=== PATIENT | male | born 1960 | race Caucasian/White ===

== ENCOUNTER 2016-05-22 10:58 | Emergency (ER) | payer SELFPAY ==
[2016-05-22] MEDS ORDERED: IV NORMAL SALINE 1000ML BAG 1,000 ML IV SCH (11:57)
[2016-05-22] MEDS ORDERED: FENTANYL PF 100 MCG/2 ML VIAL. IV PRN (12:00)
[2016-05-22] MEDS ORDERED: ONDANSETRON PF 4 MG/2 ML VIAL. IV ONE (12:00)
[2016-05-22] MEDS ORDERED: ASPIRIN 81 MG TAB.CHEW PO ONE (12:00)
[2016-05-22 12:08] LABS: BASO # 0.1 x10^3/uL (0.0-0.2); BASO % 1 % (0-3); EOS % 1 % (0-3); HEMATOCRIT 41.5 % (39.0-53.0); HEMOGLOBIN 13.7 g/dL (13.0-17.5); LYMPH # 1.1 x10^3/uL (1.0-4.8); LYMPH % 9 % (24-48); MEAN CORPUSCULAR HEMOGLOBIN 31 pg (25-35); MEAN CORPUSCULAR HGB CONC 33 g/dL (31-37); MEAN CORPUSCULAR VOLUME 94 fL (79-100); MONO % 6 % (0-9); NEUT % 84 % (31-73); PLATELET COUNT 200 x10^3/uL (140-400); RED BLOOD COUNT 4.42 x10^6/uL (4.30-5.70); RED CELL DISTRIBUTION WIDTH 13.2 % (11.5-14.5); WHITE BLOOD COUNT 12.4 x10^3/uL (4.0-11.0)
--- NOTE | 2016-05-22 12:10 | PHYS DOC ---
Past Medical History Past Medical History: No Pertinent History Past Surgical History: Other Additional Past Surgical Histo: RIGHT ARM SURGERY Alcohol Use: None Drug Use: Marijuana Adult General Chief Complaint Chief Complaint: CHEST PAIN HPI HPI Patient is a 55 year old male who presents with complaint of left-sided chest pain. Patient states his symptoms started yesterday. The patient states that the power steering in his vehicle when out and he was having to strain to operate his vehicle. Patient states that afterward he started developing pain along the left side of his chest as well as cramping in his left upper and lower extremity. Patient denies any known history of cardiac problems. Patient does not take medications on a regular basis. The patient states that the pain in his chest worsens with inspiration and with movement. The patient took ibuprofen at home with no relief in symptoms. Patient denies any associated diaphoresis, nausea, vomiting, or shortness of breath. The patient states that he is an occasional smoker of tobacco on a daily smoker of marijuana. Review of Systems Review of Systems Constitutional: Denies fever or chills [] Eyes: Denies change in visual acuity, redness, or eye pain [] HENT: Denies nasal congestion or sore throat [] Respiratory: Denies cough or shortness of breath [] Cardiovascular: Chest pain [] GI: Denies abdominal pain, nausea, vomiting, bloody stools or diarrhea [] : Denies dysuria or hematuria [] Musculoskeletal: Muscle cramping in left upper and lower extremity [] Integument: Denies rash or skin lesions [] Neurologic: Denies headache, focal weakness or sensory changes [] Endocrine: Denies polyuria or polydipsia [] Current Medications Current Medications Current Medications Medications (Trade) Dose Ordered Sig/Reema Start Time Stop Time Status Last Admin Dose Admin Aspirin (Children'S Aspirin) 324 mg 1X ONCE 05/22/16 12:00 05/22/16 12:02 DC 05/22/16 12:23 324 MG Fentanyl Citrate 50 mcg 50 mcg PRN Q15MIN PRN 05/22/16 12:00 05/22/16 13:32 DC 05/22/16 12:23 50 MCG Ondansetron HCl (Zofran) 4 mg 1X ONCE 05/22/16 12:00 05/22/16 12:02 DC 05/22/16 12:22 4 MG Sodium Chloride (Iv Sodium Chloride 0.9% 1000ml Bag) 1,000 ml @ 1,000 mls/hr Q1H 05/22/16 11:57 05/22/16 12:56 DC 05/22/16 12:22 1,000 MLS/HR Allergies Allergies Allergies Coded Allergies Type Severity Reaction Last Updated Verified No Known Drug Allergies 04/24/15 No Physical Exam Physical Exam Constitutional: Alert, afebrile, no acute distress. [] HENT: Normocephalic, atraumatic, bilateral external ears normal, oropharynx moist, no oral exudates, nose normal. [] Eyes: PERRLA, EOMI, conjunctiva normal, no discharge. [] Neck: Normal range of motion, no tenderness, supple, no stridor. [] Cardiovascular:Heart rate regular rhythm, no murmur [] Lungs & Thorax: Bilateral breath sounds clear to auscultation [] Abdomen: Bowel sounds normal, soft, no tenderness, no masses, no pulsatile masses. [] Skin: Warm, dry, no erythema, no rash. [] Back: No tenderness, no CVA tenderness. [] Extremities: No tenderness, no cyanosis, no clubbing, ROM intact, no edema. [] Neurologic: Alert and oriented X 3, normal motor function, normal sensory function, no focal deficits noted. [] Current Patient Data Vital Signs Vital Signs Date Time Temp Pulse Resp B/P Pulse Ox O2 Delivery O2 Flow Rate FiO2 05/22/16 13:25 67 20 134/74 96 Room Air 05/22/16 11:16 98.0 98.0 Lab Values Laboratory Tests Test 05/22/16 11:10 White Blood Count 12.4x10^3/uL (4.0-11.0) H Red Blood Count 4.42x10^6/uL (4.30-5.70) Hemoglobin 13.7g/dL (13.0-17.5) Hematocrit 41.5% (39.0-53.0) Mean Corpuscular Volume 94fL (79-100) Mean Corpuscular Hemoglobin 31pg (25-35) Mean Corpuscular Hemoglobin Concent 33g/dL (31-37) Red Cell Distribution Width 13.2% (11.5-14.5) Platelet Count 200x10^3/uL (140-400) Neutrophils (%) (Auto) 84% (31-73) H Lymphocytes (%) (Auto) 9% (24-48) L Monocytes (%) (Auto) 6% (0-9) Eosinophils (%) (Auto) 1% (0-3) Basophils (%) (Auto) 1% (0-3) Neutrophils # (Auto) 10.4x10^3uL (1.8-7.7) H Lymphocytes # (Auto) 1.1x10^3/uL (1.0-4.8) Monocytes # (Auto) 0.7x10^3/uL (0.0-1.1) Eosinophils # (Auto) 0.2x10^3/uL (0.0-0.7) Basophils # (Auto) 0.1x10^3/uL (0.0-0.2) Sodium Level 139mmol/L (136-145) Potassium Level 4.2mmol/L (3.5-5.1) Chloride Level 103mmol/L (98-107) Carbon Dioxide Level 25mmol/L (21-32) Anion Gap 11 (6-14) Blood Urea Nitrogen 18mg/dL (8-26) Creatinine 1.2mg/dL (0.7-1.3) Estimated GFR (Cockcroft-Gault) 62.9 Glucose Level 107mg/dL (70-99) H Calcium Level 9.1mg/dL (8.5-10.1) Magnesium Level 2.0mg/dL (1.8-2.4) Total Bilirubin 0.2mg/dL (0.2-1.0) Direct Bilirubin < 0.1mg/dL (0.0-0.2) Aspartate Amino Transferase (AST) 27U/L (15-37) Alanine Aminotransferase (ALT) 25U/L (16-63) Alkaline Phosphatase 58U/L (46-116) Creatine Kinase 293U/L (39-308) Creatine Kinase MB (Mass) 2.4ng/mL (0.0-3.6) Creatine Kinase MB Relative Index 0.8% (0-4) Troponin I Quantitative < 0.017ng/mL (0.000-0.055) KQ-Egw-K-Type Natriuretic Peptide 40pg/mL (0-124) Total Protein 7.1g/dL (6.4-8.2) Albumin 3.8g/dL (3.4-5.0) Laboratory Tests 05/22/16 11:10 Laboratory Tests 05/22/16 11:10 EKG EKG Interpreted by me: Heart rate 70, sinus rhythm, normal intervals, normal axis, no acute ST/T-wave abnormalities present [] Radiology/Procedures Radiology/Procedures [facility] [address] [place] [address] IMAGING REPORT Signed PATIENT: CARLTON ABREU ACCOUNT: [id number] : 1960 LOCATION: ER AGE: 55 SEX: M EXAM STATUS: PRE ER ORD. PHYSICIAN: LIZABETH THOMPSON MD REASON: left-sided chest pain today PROCEDURE: CHEST PA & LATERAL Two view chest History:left-sided chest pain today . PA and lateral views of the chest are submitted. Comparison: None Findings: There is no significant infiltrate, pleural effusion, or pneumothorax. The pericardial cardiac silhouette is within normal limits in size. The trachea is in the midline. No acute osseous abnormality is identified. There may be emphysema. There could be a tiny nodule on the left at the level of the left posterior eighth rib. Impression: 1. There is no evidence of acute cardiopulmonary disease. 2. There may be a tiny left lung nodule. Findings would be better characterized with nonemergent CT versus three-month radiographic follow-up to assess stability. DICTATED and SIGNED BY: MEL CHAPMAN MD DATE: 05/22/161226 CC: LIZABETH THOMPSON MD; NO PCP ~ [] Course & Med Decision Making Course & Med Decision Making Pertinent Labs and Imaging studies reviewed. (See chart for details) The patient was given aspirin, fentanyl, and Zofran in the emergency department. On reevaluation, patient's symptoms have improved. The patient does not show any evidence of acute cardiac ischemia. The patient's symptoms appear consistent with muscle strain likely from increased straining while operating his vehicle without power steering. I have referred the patient to Dr. Diaz for follow-up this week for routine outpatient stress testing. Advised return to the emergency department for any worsening symptoms. Patient voiced understanding and in agreement with treatment plan. Dragon Disclaimer Dragon Disclaimer This electronic medical record was generated, in whole or in part, using a voice recognition dictation system. Departure Departure Impression: Primary Impression: Chest wall pain Disposition: 01 HOME, SELF-CARE Condition: IMPROVED Referrals: NO PCP (PCP) ANNABELLA DIAZ MD Patient Instructions: Chest Pain (Nonspecific) Additional Instructions: Your emergency department evaluation today did not show any evidence of an active heart attack. Your symptoms appear to be the result of acute muscle strain. It is however recommended that she follow-up with Dr. Diaz in the next 2-3 days for evaluation and routine cardiac stress testing. Continue on a daily baby aspirin until you have made your appointment with Dr. Diaz. Return to the emergency department for any worsening symptoms. Scripts Ibuprofen 600 Mg [id number] Mg PO Q6HRS PRN INFLAMMATION #30 TAB Prov:LIZABETH THOMPSON MD 05/22/16 Cyclobenzaprine Hcl 10 Mg [id number] Mg PO TID PRN MUSCLE PAIN #30 TAB Prov:LIZABETH THOMPSON MD 05/22/16 LIZABETH THOMPSON MD May 22, 2016 12:10
[2016-05-22 12:29] LABS: ANION GAP 11 (6-14); BLOOD UREA NITROGEN 18 mg/dL (8-26); CALCIUM 9.1 mg/dL (8.5-10.1); CARBON DIOXIDE 25 mmol/L (21-32); CHLORIDE 103 mmol/L (98-107); CREATININE 1.2 mg/dL (0.7-1.3); GFR 62.9; GLUCOSE 107 mg/dL (70-99); POTASSIUM 4.2 mmol/L (3.5-5.1); SODIUM 139 mmol/L (136-145)
[2016-05-22 12:31] LABS: ALBUMIN 3.8 g/dL (3.4-5.0); ALK PHOS 58 U/L (46-116); ALT (SGPT) 25 U/L (16-63); AST (SGOT) 27 U/L (15-37); CKMB INDEX 0.8 % (0-4); CKMB MASS 2.4 ng/mL (0.0-3.6); DIRECT BILIRUBIN < 0.1 mg/dL (0.0-0.2); TOTAL BILIRUBIN 0.2 mg/dL (0.2-1.0); TOTAL PROTEIN 7.1 g/dL (6.4-8.2)
--- NOTE | 2016-05-22 12:31 | RAD ---
Two view chest History:left-sided chest pain today . PA and lateral views of the chest are submitted. Comparison: None Findings: There is no significant infiltrate, pleural effusion, or pneumothorax. The pericardial cardiac silhouette is within normal limits in size. The trachea is in the midline. No acute osseous abnormality is identified. There may be emphysema. There could be a tiny nodule on the left at the level of the left posterior eighth rib. Impression: 1. There is no evidence of acute cardiopulmonary disease. 2. There may be a tiny left lung nodule. Findings would be better characterized with nonemergent CT versus three-month radiographic follow-up to assess stability.
[2016-05-22] MEDS ORDERED: CYCL10TA2 PO (13:13)
[2016-05-22] MEDS ORDERED: IBUP-1007 PO (13:13)
[2016-05-22 13:25] VITALS: BP 134/74
--- NOTE | 2016-05-22 18:53 | EKG ---
[facility] [address] [place] [address] Test Date: 2016-05-22 Test Time: 11:10:20 Pat Name: CARLTON ABREU Department: Room: Gender: M Social Service Agency Director: : 1960 Requested By: LIZABETH THOMPSON Order Number: [id number] Reading MD: Laila Fuentes Measurements Intervals Viola Rate: 70 P: 67 UT: 130 QRS: 62 QRSD: 88 T: 58 QT: 362 QTc: 393 Interpretive Statements SINUS RHYTHM NORMAL ECG RI6.01 Unconfirmed report Compared to ECG 10/12/2011 15:27:34 No significant changes Electronically Signed On 05-23-2016 19:08:31 WEB OPERATIONS ADMINISTRATOR by Laila Fuentes
== END 2016-05-22 13:25 | disposition home or self-care (01) ==
LOC: ER 10:58
DX: R07.89 Other chest pain (principal); F12.10 Cannabis abuse, uncomplicated
CPT/HCPCS: 36415; 71020; 80048; 80076; 82553; 83735; 83880; 84484; 85027; 93005; 96361; 96374; 96375; 99285; J2405; J3010; J7030